=== PATIENT | female | born 1965 | race Asian ===

== ENCOUNTER 2020-07-24 08:03 | Day surgery (SDC) | payer BC ==
[2020-07-21 17:25] VITALS: BMI 22.8
[2020-07-24] MEDS ORDERED: PROPOFOL 20 ML ONE ×3 (08:33)
[2020-07-24] MEDS ORDERED: LIDOCAINE HCL/PF 2% SDV 5ML VIAL ONE (08:33)
[2020-07-24 10:06] VITALS: TEMP 97.9
[2020-07-24 10:07] VITALS: BP 102/60; PULSE 58
== END 2020-07-24 10:35 | disposition home or self-care (01) ==
LOC: FASU-ENDO 08:03
PROVIDERS: ATTEND Internal Medicine Gastroenterology
PROC: 0DJD8ZZ Inspection of Lower Intestinal Tract, Via Natural or Artificial Opening Endoscopic (ICD-10-PCS; principal; 2020-07-24 09:13)
DX: Z12.11 Encounter for screening for malignant neoplasm of colon (principal); Z80.0 Family history of malignant neoplasm of digestive organs